=== PATIENT | female | born 1945 | race Caucasian/White ===

== ENCOUNTER 2018-04-10 17:46 | Emergency (ER) | payer OTHER ==
[2018-04-10 19:03] VITALS: BMI 41.5
--- NOTE | 2018-04-10 20:08 | PDOC ---
Attending Attestation - HPI HPI: 04/10/18 20:19 The patient is a 72 year old female with a significant past medical history of COPD(on home O2), hypertension, hypercholesterolemia and anxiety who presents to the emergency department via EMS, from assisted, for elevated potassium since earlier this evening, The patient reports that she lives at home and has a home health aide. The patients potassium was noted to be elevated and was sent to the ED for further evaluation. She denies any other symptoms. She denies any fever, chills,nausea vomiting, diarrhea, constipation or urinary symptoms. She denies any chest pain, shortness of breath, headache or dizziness. The patient denies any other complaints. Documentation prepared by Arsenio Pappas, acting as veterinary medical officer for Cl Navarrete MD. <Arsenio Pappas - Last Filed: 04/10/18 20:19> - Resident Resident Name: Tammy Hernandez - ED Attending Attestation I have performed the following: I have examined & evaluated the patient, The case was reviewed & discussed with the resident, I agree w/resident's findings & plan, Exceptions are as noted - Physicial Exam PE: 04/10/18 21:26 Agree with exam as documented by resident - Medical Decision Making 04/10/18 21:26 Sent for evaluation of lab abnormality, K+ 4.0 today Denies any acute complaints Pt safe for discharge <Cl Navarrete - Last Filed: 04/10/18 21:26>
--- NOTE | 2018-04-10 20:10 | PDOC ---
History of Present Illness - General Chief Complaint: Revisit, Lab Variance Stated Complaint: ELEVATED POTASSIUM LEVEL Time Seen by Provider: 04/10/18 19:51 History Source: Patient Exam Limitations: No Limitations - History of Present Illness Initial Comments: 04/10/18 20:05 72 YOF with h/o COPD on home O2, HTN, HLD, largely bedbound at baseline, agoraphobia, anxiety, who p/w hyperkalemia to 7.0 on outpatient labs drawn on . She denies any new symptoms and has never had this issue with hyperkalemia before. Has chronic fatigue/tiredness which has been ongoing for years, also c/o chronic right eye irritation (states has had infection of that eye for the past 2 years). No new sxs, no f/c/n/v/d/c, chest pain palpitations, abdominal pain, new SOB/wheezing (states this is at her baseline), new muscle atrophy/myalgia, etc. Past History - Past Medical History Allergies/Adverse Reactions: Allergies Allergy/AdvReac Type Severity Reaction Status Date / Time Penicillins Allergy Verified 04/10/18 18:42 Home Medications: Ambulatory Orders Alprazolam [Alprazolam Xr] 0.5 mg PO DAILY 04/10/18 Amlodipine Besylate 10 mg PO DAILY 04/10/18 Ergocalciferol (Vitamin D2) [Vitamin D2] 50,000 unit PO DAILY 04/10/18 Folic Acid 1 mg PO DAILY 04/10/18 Irbesartan [Avapro (Nf) -] 150 mg PO DAILY 04/10/18 Sertraline HCl 50 mg PO DAILY 04/10/18 Asthma: Yes CVA: Yes (stroke x 1) COPD: Yes Psychiatric Problems: Yes (anxiety) - Immunization History Immunization Up to Date: Yes - Suicide/Smoking/Psychosocial Hx Smoking History: Never smoked Have you smoked in the past 12 months: No Information on smoking cessation initiated: No Hx Alcohol Use: No Drug/Substance Use Hx: No Review of Systems - Review of Systems Able to Perform ROS?: Yes Comments:: 04/10/18 20:11 GEN: generalized weakness, fatigue, tiredness (all chronic), no fever, chills, malaise, or weight change HEENT: no ear pain, sore throat, vision change, or eye pain CV: no chest pain, palpitations, lightheadedness, syncope, or edema RESP: cough, wheezing, SOB (all chronic) GI: no abdominal pain, nausea, vomiting, diarrhea, constipation, or white/black/ bloody stool : no dysuria, hematuria, incontinence, retention, bleeding, or discharge MSK: no neck/back pain, muscle weakness/pain, or joint swelling/pain NEURO: no headache, seizure, vertigo, numbness, tingling, or focal weakness PSYCH: anxiety, no substance use, no behavior change SKIN: no jaundice, no rash ROS otherwise negative except as noted in HPI *Physical Exam - Vital Signs Last Vital Signs Temp Pulse Resp BP Pulse Ox 97 F L 90 16 154/81 100 04/10/18 17:46 04/10/18 17:46 04/10/18 17:46 04/10/18 17:46 04/10/18 17:46 - Physical Exam Comments: 04/10/18 20:11 GENERAL: A/Ox4, mildly anxious, son at bedside, answers questions appropriately , obese HEENT: PERRLA, EOMI, moist mucous membranes NECK/BACK: no midline ttp, no spinal stepoff or deformity, no hematoma, full ROM , neck supple CARDIOVASCULAR: regular rate/rhythm, normal S1S2, no MGR, strong peripheral pulses, capillary refill <2 seconds, extremities wwp, no edema LUNGS/RESPIRATORY: no respiratory distress, CTAB GI/ABDOMEN: symmetric [id number], normoactive BS, soft, no ttp, no midline pulsatile masses : no CVA tenderness EXTREMITIES: no muscle atrophy, no acute deformity, no edema SKIN: warm and dry, no pallor, no jaundice, no rash, no bruising, no skin breakdown, no cuts, no lesions NEUROLOGICAL: GCS 15, CN II-XII grossly intact, 5/5 strength proximally and distally, no facial droop Moderate Sedation - Procedure Monitoring Vital Signs: Procedure Monitoring Vital Signs Temperature 97 F L 04/10/18 17:46 Pulse Rate 90 04/10/18 17:46 Respiratory Rate 16 04/10/18 17:46 Blood Pressure 154/81 04/10/18 17:46 O2 Sat by Pulse Oximetry (%) 100 04/10/18 17:46 ED Treatment Course - LABORATORY CBC & Chemistry Diagram: 04/10/18 20:15 04/10/18 20:15 Medical Decision Making - Medical Decision Making 04/10/18 20:08 Pt p/w outpatient labs suggesting hyperkalemia, but has no new sxs. Initial Vital Signs Temp Pulse Resp BP Pulse Ox 97 F L 90 16 154/81 100 04/10/18 17:46 04/10/18 17:46 04/10/18 17:46 04/10/18 17:46 04/10/18 17:46 Exam: As noted in Physical Exam section. DDX IBNLT: most likely hemolyzed sample as the patient has no sxs and no h/o similar lab abnormality, and per history has no obvious cause for hyperkalemia. Also considered are pseudohyperkalemia, statin-induced muscle breakdown/ rhabdomyolysis, renal failure, missed HD, cell (e.g. rhabdo, burn, crush, tumor lysis, hemolysis), medications (ACEI, ARB, NSAIDs, CAMARILLO-2 inhibitors, Bactrim, potassium-sparing diuretics), etc. W/U ordered: CBCD CMP EKG TX ordered: none at this time Laboratory Tests 04/10/18 04/10/18 20:15 20:15 WBC 11.7 H RBC 4.83 Hgb 13.5 Hct 39.6 MCV 81.9 MCH 27.9 MCHC 34.0 RDW 14.2 Plt Count 281 MPV 7.7 Absolute Neuts (auto) 7.7 Neutrophils % 65.6 Lymphocytes % 24.4 Monocytes % 8.2 Eosinophils % 0.9 Basophils % 0.9 Nucleated RBC % 0 Sodium 138 Potassium 4.0 Chloride 99 Carbon Dioxide 33 H Anion Gap 6 L BUN 8 Creatinine 0.9 Creat Clearance w eGFR > 60 Random Glucose 100 Calcium 9.0 Total Bilirubin 0.5 AST 68 H ALT 19 Alkaline Phosphatase 80 Total Protein 6.7 Albumin 3.2 L Reassessment: Patient remains asymptomatic. I am cancelling the EKG as the patient's K+ is found wnl, denies chest pain, palpitations, or other cardiac sxs. Repeat VS: 04/10/18 21:32 Workup is not concerning for emergency-level pathology at this time. EKG without peaked t-waves, no hyperkalemic emergency given lack of QRS widening. The Pt is appropriate for discharge with close outpatient follow up. They are comfortable with this plan and will follow up with their primary care provider in 1-3 days. Specific return precautions are discussed and they will come back to the ER if necessary. *DC/Admit/Observation/Transfer Diagnosis at time of Disposition: Encounter for medical screening examination - Discharge Dispostion Disposition: HOME Condition at time of disposition: Stable Decision to Admit order: No - Referrals Referrals: [facility] [place] [Provider Group] - Patient Instructions Additional Instructions: You were seen in the ER for high potassium. We did an exam, imaging studies, and an electrocardiogram. After our assessment, we do not believe you are having a medical emergency at this time, and we believe you are safe to go home. Please follow up with your primary care team in 1-3 days. We are also giving you referral information for our primary care clinic, in case you need someone new to see. Call their clinic, tell them you were seen in the ER, and tell them you need a follow-up. If you have any new or worsening symptoms, please come back to the ER at any time (24 hours a day). If you are having severe or life threatening symptoms, or symptoms that make it unsafe to drive or have someone drive you, please call 911. - Post Discharge Activity
[2018-04-10 20:34] LABS: BASO % 0.9 % (0-2.0); EOS % 0.9 % (0-4.5); HEMATOCRIT 39.6 % (32.4-45.2); HEMOGLOBIN 13.5 GM/dL (10.7-15.3); LYMPH % 24.4 % (8-40); MCH 27.9 pg (25.7-33.7); MEAN CELL VOLUME 81.9 fl (80-96); MEAN PLT VOLUME 7.7 fl (7.5-11.1); MONO % 8.2 % (3.8-10.2); NEUT % 65.6 % (42.8-82.8); PLATELET COUNT 281 K/MM3 (134-434); RBC 4.83 M/mm3 (3.60-5.2); RDW 14.2 % (11.6-15.6); WHITE BLOOD COUNT 11.7 K/mm3 (4.0-10.0)
[2018-04-10 21:20] LABS: ALBUMIN 3.2 g/dl (3.4-5.0); ALK PHOS 80 U/L (45-117); ANION GAP 6 MMOL/L (8-16); BILIRUBIN,TOTAL 0.5 mg/dL (0.2-1); BLOOD UREA NITROGEN 8 mg/dL (7-18); CHLORIDE 99 mmol/L (98-107); CO2 33 mmol/L (21-32); CREATININE 0.9 mg/dL (0.55-1.3); GLUCOSE,RANDOM 100 mg/dL (74-106); SGOT/AST 68 U/L (15-37); SGPT/ALT 19 U/L (13-61); SODIUM 138 mmol/L (136-145); TOT PROT 6.7 g/dl (6.4-8.2)
[2018-04-10 23:08] VITALS: BP 144/66; PULSE 82; TEMP 97.9
--- NOTE | 2018-04-11 12:15 | EKG ---
Test Reason : Blood Pressure : / mmHG Vent. Rate : 082 BPM Atrial Rate : 082 BPM P-R Int : 150 ms QRS Dur : 082 ms QT Int : 374 ms P-R-T Axes : 059 -05 075 degrees QTc Int : 436 ms NORMAL SINUS RHYTHM WITH SINUS ARRHYTHMIA LOW VOLTAGE QRS BORDERLINE ECG WHEN COMPARED WITH ECG OF 06-JAN-2009 09:11, NONSPECIFIC T WAVE ABNORMALITY HAS REPLACED INVERTED T WAVES IN ANTERIOR LEADS Confirmed by CANDY LOMBARDO, FERNANDO ([id number]) on 04/11/2018 12:14:42 PM Referred By: Confirmed By:FERNANDO GUPTA MD
== END 2018-04-10 23:50 | disposition home or self-care (01) ==
LOC: JER 17:46
DX: E87.5 Hyperkalemia (principal); I10 Essential (primary) hypertension; E78.5 Hyperlipidemia, unspecified; J44.9 Chronic obstructive pulmonary disease, unspecified; F41.8 Other specified anxiety disorders; F40.00 Agoraphobia, unspecified; Z86.73 Personal history of transient ischemic attack (TIA), and cerebral infarction without residual deficits; Z74.01 Bed confinement status
CPT/HCPCS: 36415; 80053; 85025; 93005; 93010; 99282-25

== ENCOUNTER 2020-07-02 20:16 | Inpatient (IN) | payer OTHER ==
[2020-07-02] MEDS ORDERED: SODIUM CHLORIDE 1,000 ML IV STA (20:58)
[2020-07-02 23:18] LABS: BASO % 0.2 % (0-2.0); HEMATOCRIT 42.6 % (32.4-45.2); HEMOGLOBIN 13.6 GM/dL (10.7-15.3); LYMPH % 6.3 % (8-40); MCH 28.2 pg (25.7-33.7); MCHC 31.9 g/dl (32.0-36.0); MEAN CELL VOLUME 88.3 fl (80-96); MEAN PLT VOLUME 8.3 fl (7.5-11.1); MONO % 7.4 % (3.8-10.2); NEUT % 86.1 % (42.8-82.8); PLATELET COUNT 288 K/MM3 (134-434); RBC 4.83 M/mm3 (3.60-5.2); RDW 15.2 % (11.6-15.6)
[2020-07-02 23:53] LABS: POTASSIUM 3.8 mmol/L (3.5-5.1)
[2020-07-02 23:55] LABS: CALCIUM 9.1 mg/dL (8.5-10.1)
[2020-07-02 23:56] LABS: ALBUMIN 3.3 g/dl (3.4-5.0); BLOOD UREA NITROGEN 11.2 mg/dL (7-18)
[2020-07-02 23:59] LABS: CREATININE 1.4 mg/dL (0.55-1.3)
[2020-07-03] LABS: BILIRUBIN,TOTAL 0.6 mg/dL (0.2-1)
[2020-07-03 02:23] LABS: EPI CELLS >36 /uL (0-25.1); HYALINE CASTS 63 /uL (0-3.1); PH,URINE 5.5 (5.0-8.0); URINE APPEARANCE CLOUDY; URINE BACTERIA 31 /uL (0-1359); URINE BILIRUBIN 1+ (NEGATIVE); URINE COLOR DK YELLOW; URINE GLUCOSE (UA) NEGATIVE (NEGATIVE); URINE KETONE TRACE (NEGATIVE); URINE LEUK ESTERASE 1+ (NEGATIVE); URINE NITRITE NEGATIVE (NEGATIVE); URINE PROTEIN 1+ (NEGATIVE); URINE WBC 52 /uL (0-25.8)
[2020-07-03] MEDS ORDERED: NITROFURANTOIN MACROCRYSTAL 50 MG CAPSULE (FP) PO SCH (03:00)
[2020-07-03] MEDS ORDERED: SODIUM CHLORIDE 1,000 ML IV SCH (06:45)
[2020-07-03] MEDS ORDERED: INSULIN SLIDING SCALE (NOVOLOG) 1 VIAL SQ SCH (07:00)
[2020-07-03] MEDS: HEPARIN NA (PORCINE) 5,000 UNITS/ML 1ML VIAL SQ SCH ×3 (10:06→21:19)
[2020-07-03 10:45] LABS: BASO % 0.3 % (0-2.0); EOS % 0.1 % (0-4.5); HEMATOCRIT 37.8 % (32.4-45.2); MCH 27.9 pg (25.7-33.7); MCHC 31.6 g/dl (32.0-36.0); MEAN CELL VOLUME 88.3 fl (80-96); MEAN PLT VOLUME 8.1 fl (7.5-11.1); MONO % 7.4 % (3.8-10.2); NEUT % 79.2 % (42.8-82.8); PLATELET COUNT 227 K/MM3 (134-434); RBC 4.29 M/mm3 (3.60-5.2); RDW 14.7 % (11.6-15.6); WHITE BLOOD COUNT 12.4 K/mm3 (4.0-10.0)
[2020-07-03 11:18] LABS: POTASSIUM 3.9 mmol/L (3.5-5.1)
[2020-07-03 11:21] LABS: ALBUMIN 2.7 g/dl (3.4-5.0); BLOOD UREA NITROGEN 13.4 mg/dL (7-18); CALCIUM 8.6 mg/dL (8.5-10.1)
[2020-07-03 11:24] LABS: CREATININE 1.1 mg/dL (0.55-1.3)
[2020-07-03 11:26] LABS: BILIRUBIN,TOTAL 0.5 mg/dL (0.2-1); TOT PROT 5.8 g/dl (6.4-8.2)
[2020-07-03] MEDS ORDERED: PATIENT'S OWN MEDICATION (NON-FORMULARY) (Alprazolam [Alprazolam Xr] 0.5 MG Tab.Er.24h) PO SCH (13:00)
[2020-07-03] MEDS: SERTRALINE HCL 50 MG TABLET (FP) PO SCH (14:28)
[2020-07-03] MEDS: FOLIC ACID 1 MG TABLET (FP) PO SCH (14:28)
[2020-07-03] MEDS: amLODIPine BESYLATE 5 MG TABLET (FP) PO SCH (14:28)
[2020-07-03] MEDS ORDERED: ALPRAZOLAM 0.25 MG PO SCH (14:45)
[2020-07-03] MEDS: SODIUM CHLORIDE 1,000 ML IV SCH (19:01)
[2020-07-03] MEDS: ALPRAZolam 0.25 MG TABLET PO PRN (19:03)
[2020-07-04] MEDS: HEPARIN NA (PORCINE) 5,000 UNITS/ML 1ML VIAL SQ SCH ×3 (05:30→21:19)
[2020-07-04 09:01] LABS: VENOUS BASE EXCESS 3.7 mmol/L (-2-2); VENOUS O2 SATURATION 88.3 % (70-80); VENOUS PH 7.371 (7.310-7.410)
[2020-07-04 09:07] LABS: BASO % 0.3 % (0-2.0); EOS % 0.9 % (0-4.5); HEMATOCRIT 36.2 % (32.4-45.2); HEMOGLOBIN 11.8 GM/dL (10.7-15.3); LYMPH % 27.1 % (8-40); MCH 28.8 pg (25.7-33.7); MCHC 32.7 g/dl (32.0-36.0); MEAN CELL VOLUME 88.1 fl (80-96); MEAN PLT VOLUME 7.8 fl (7.5-11.1); MONO % 8.5 % (3.8-10.2); NEUT % 63.2 % (42.8-82.8); PLATELET COUNT 208 K/MM3 (134-434); RBC 4.12 M/mm3 (3.60-5.2); RDW 14.9 % (11.6-15.6); WHITE BLOOD COUNT 9.2 K/mm3 (4.0-10.0)
[2020-07-04] MEDS: amLODIPine BESYLATE 5 MG TABLET (FP) PO SCH (09:28)
[2020-07-04] MEDS: SERTRALINE HCL 50 MG TABLET (FP) PO SCH (09:28)
[2020-07-04] MEDS: FOLIC ACID 1 MG TABLET (FP) PO SCH (09:29)
[2020-07-04 09:31] LABS: POTASSIUM 4.2 mmol/L (3.5-5.1)
[2020-07-04 09:36] LABS: ALBUMIN 2.6 g/dl (3.4-5.0); CALCIUM 8.6 mg/dL (8.5-10.1)
[2020-07-04 09:37] LABS: BILIRUBIN,TOTAL 0.7 mg/dL (0.2-1); BLOOD UREA NITROGEN 14.2 mg/dL (7-18); MAGNESIUM 2.2 mg/dL (1.8-2.4)
[2020-07-04 09:40] LABS: CREATININE 0.8 mg/dL (0.55-1.3)
[2020-07-04 09:42] LABS: TOT PROT 5.7 g/dl (6.4-8.2)
[2020-07-04] MEDS: SODIUM CHLORIDE 1,000 ML IV SCH ×2 (13:34→15:13)
[2020-07-04] MEDS ORDERED: ACETAMINOPHEN 325 MG TABLET (FP) PO ONE (21:05)
[2020-07-04] MEDS: ALPRAZolam 0.25 MG TABLET PO PRN (21:18)
[2020-07-05] MEDS: HEPARIN NA (PORCINE) 5,000 UNITS/ML 1ML VIAL SQ SCH ×3 (05:31→22:04)
[2020-07-05] MEDS: SODIUM CHLORIDE 1,000 ML IV SCH ×2 (05:36→15:37)
[2020-07-05 09:09] LABS: BASO % 0.8 % (0-2.0); EOS % 1.3 % (0-4.5); HEMATOCRIT 35.3 % (32.4-45.2); HEMOGLOBIN 11.5 GM/dL (10.7-15.3); LYMPH % 23.8 % (8-40); MCH 28.8 pg (25.7-33.7); MCHC 32.6 g/dl (32.0-36.0); MEAN CELL VOLUME 88.3 fl (80-96); MEAN PLT VOLUME 7.4 fl (7.5-11.1); MONO % 8.3 % (3.8-10.2); NEUT % 65.8 % (42.8-82.8); PLATELET COUNT 201 K/MM3 (134-434); RDW 14.7 % (11.6-15.6)
[2020-07-05 09:44] LABS: POTASSIUM 3.9 mmol/L (3.5-5.1)
[2020-07-05 09:46] LABS: ALBUMIN 2.6 g/dl (3.4-5.0); BLOOD UREA NITROGEN 10.4 mg/dL (7-18); CALCIUM 8.1 mg/dL (8.5-10.1)
[2020-07-05 09:50] LABS: CREATININE 0.7 mg/dL (0.55-1.3)
[2020-07-05 09:51] LABS: BILIRUBIN,TOTAL 0.6 mg/dL (0.2-1); TOT PROT 5.6 g/dl (6.4-8.2)
[2020-07-05] MEDS: SERTRALINE HCL 50 MG TABLET (FP) PO SCH (10:24)
[2020-07-05] MEDS: FOLIC ACID 1 MG TABLET (FP) PO SCH (10:24)
[2020-07-05] MEDS: amLODIPine BESYLATE 5 MG TABLET (FP) PO SCH (10:25)
[2020-07-05] MEDS ORDERED: SODIUM CHLORIDE 1,000 ML IV SCH (16:25)
[2020-07-05] MEDS ORDERED: ACETAMINOPHEN 325 MG TABLET (FP) PO ONE (19:28)
[2020-07-06] MEDS: HEPARIN NA (PORCINE) 5,000 UNITS/ML 1ML VIAL SQ SCH ×3 (05:03→22:31)
[2020-07-06 07:48] LABS: HEMATOCRIT 35.8 % (32.4-45.2); HEMOGLOBIN 11.6 GM/dL (10.7-15.3); MCH 28.5 pg (25.7-33.7); MCHC 32.5 g/dl (32.0-36.0); MEAN CELL VOLUME 87.6 fl (80-96); MEAN PLT VOLUME 7.7 fl (7.5-11.1); PLATELET COUNT 205 K/MM3 (134-434); RBC 4.08 M/mm3 (3.60-5.2); WHITE BLOOD COUNT 7.6 K/mm3 (4.0-10.0)
[2020-07-06 08:17] LABS: POTASSIUM 3.8 mmol/L (3.5-5.1)
[2020-07-06 08:22] LABS: ALBUMIN 2.5 g/dl (3.4-5.0); BLOOD UREA NITROGEN 7.8 mg/dL (7-18); CALCIUM 8.6 mg/dL (8.5-10.1)
[2020-07-06 08:25] LABS: CREATININE 0.6 mg/dL (0.55-1.3)
[2020-07-06 08:27] LABS: BILIRUBIN,TOTAL 0.5 mg/dL (0.2-1); TOT PROT 5.5 g/dl (6.4-8.2)
[2020-07-06] MEDS: amLODIPine BESYLATE 5 MG TABLET (FP) PO SCH (09:28)
[2020-07-06] MEDS: SERTRALINE HCL 50 MG TABLET (FP) PO SCH (09:28)
[2020-07-06] MEDS: FOLIC ACID 1 MG TABLET (FP) PO SCH (09:29)
[2020-07-06] MEDS ORDERED: ACETAMINOPHEN 325 MG TABLET (FP) PO PRN (09:40)
[2020-07-06 14:04] VITALS: BMI 35.8
[2020-07-06] MEDS: VALSARTAN 80 MG TABLET PO SCH (16:38)
[2020-07-06] MEDS: DOCUSATE SODIUM 100 MG CAPSULE (FP) PO PRN (17:52)
[2020-07-06] MEDS ORDERED: SENNOSIDES 8.6MG TABLET (FP) PO SCH (22:00)
[2020-07-07] MEDS ORDERED: METOPROLOL TARTRATE 25 MG TABLET (FP) PO ONE (04:42)
[2020-07-07] MEDS ORDERED: FLUTICASONE PROP 0.05% 16 GM NASAL SPRAY NS SCH (04:46)
[2020-07-07] MEDS ORDERED: SODIUM CHLORIDE 1,000 ML IV SCH (05:00)
[2020-07-07] MEDS: HEPARIN NA (PORCINE) 5,000 UNITS/ML 1ML VIAL SQ SCH (05:46)
[2020-07-07 07:35] VITALS: TEMP 98
[2020-07-07] MEDS ORDERED: CEFPODOXIME PROXETIL 100 MG TABLET PO ONE (09:15)
[2020-07-07] MEDS ORDERED: PT OWN MED DRAWER 7, Y5N ONE (09:52)
[2020-07-07] MEDS: VALSARTAN 80 MG TABLET PO SCH (10:05)
[2020-07-07] MEDS: SERTRALINE HCL 50 MG TABLET (FP) PO SCH (10:06)
[2020-07-07] MEDS: DOCUSATE SODIUM 100 MG CAPSULE (FP) PO PRN (10:06)
[2020-07-07] MEDS: FOLIC ACID 1 MG TABLET (FP) PO SCH (10:06)
[2020-07-07] MEDS: amLODIPine BESYLATE 5 MG TABLET (FP) PO SCH (10:06)
[2020-07-07 11:43] VITALS: BP 140/59; PULSE 64
[2020-07-07 12:08] LABS: EPI CELLS >36 /uL (0-25.1); HYALINE CASTS 1 /uL (0-3.1); URINE APPEARANCE CLEAR; URINE BACTERIA 443 /uL (0-1359); URINE BILIRUBIN 1+ (NEGATIVE); URINE COLOR DK YELLOW; URINE GLUCOSE (UA) NEGATIVE (NEGATIVE); URINE KETONE TRACE (NEGATIVE); URINE LEUK ESTERASE TRACE (NEGATIVE); URINE NITRITE NEGATIVE (NEGATIVE); URINE PROTEIN TRACE (NEGATIVE); URINE RBC 91 /uL (0-23.9); URINE WBC 29 /uL (0-25.8)
== END 2020-07-07 13:48 | DRG 558 ==
LOC: JER 20:16 → JERBED 07-03 03:05 → J5S 07-03 11:14
PROVIDERS: ADMIT Internal Medicine
DX: M62.82 Rhabdomyolysis (principal); N17.9 Acute kidney failure, unspecified; N39.0 Urinary tract infection, site not specified; I10 Essential (primary) hypertension; J44.9 Chronic obstructive pulmonary disease, unspecified; E78.5 Hyperlipidemia, unspecified; E86.0 Dehydration; R62.7 Adult failure to thrive; F41.9 Anxiety disorder, unspecified; Z99.81 Dependence on supplemental oxygen; Z88.0 Allergy status to penicillin; Z74.01 Bed confinement status; Z86.73 Personal history of transient ischemic attack (TIA), and cerebral infarction without residual deficits; F40.00 Agoraphobia, unspecified; E66.9 Obesity, unspecified; Z68.35 Body mass index [BMI] 35.0-35.9, adult; F32.9 Major depressive disorder, single episode, unspecified; W19.XXXA Unspecified fall, initial encounter; Y93.89 Activity, other specified; Y92.098 Other place in other non-institutional residence as the place of occurrence of the external cause; Y99.8 Other external cause status
CPT/HCPCS: 36415; 71045-TC-FY; 72170-TC-FY; 73562-TC-LT-FY; 73562-TC-RT-FY; 73610-TC-LT-FY; 76775-TC; 80053; 81003; 82550; 82553; 82803; 83036; 83735; 84484; 85025; 85027; 87086; 87186; 93005; 93010; 93880-TC; 97116-GP; 97162-GP; 99285-25; C9803; J1644; U0003

== ENCOUNTER 2020-07-12 13:18 | Inpatient (IN) | payer OTHER ==
[2020-07-12 14:20] VITALS: BMI 38.4
[2020-07-12 16:13] LABS: CHLORIDE 95 mmol/L (98-107); SODIUM 140 mmol/L (136-145)
[2020-07-12 16:15] LABS: ANION GAP 7 MMOL/L (8-16); BLOOD UREA NITROGEN 22.4 mg/dL (7-18); CALCIUM 9.2 mg/dL (8.5-10.1); CO2 38 mmol/L (21-32); INR 1.14 (0.83-1.09); VENOUS BASE EXCESS 6.2 mmol/L (-2-2); VENOUS PH 7.256 (7.310-7.410)
[2020-07-12 16:16] LABS: ALBUMIN 2.7 g/dl (3.4-5.0); GLUCOSE,RANDOM 88 mg/dL (74-106)
[2020-07-12 16:18] LABS: SGOT/AST 23 U/L (15-37); SGPT/ALT 22 U/L (13-61); VENOUS PCO2 83.1 mmHg (38-52)
[2020-07-12 16:19] LABS: CREATININE 0.8 mg/dL (0.55-1.3); LDH 232 U/L (84-246)
[2020-07-12 16:20] LABS: BILIRUBIN,TOTAL 0.7 mg/dL (0.2-1); TOT PROT 6.5 g/dl (6.4-8.2)
[2020-07-12 16:21] LABS: ALK PHOS 74 U/L (45-117)
[2020-07-12 16:24] LABS: N-TERMINAL BNP 2159.7 pg/ml (5-450)
[2020-07-12 16:46] LABS: BASO % 0.2 % (0-2.0); EOS % 0.2 % (0-4.5); HEMOGLOBIN 12.2 GM/dL (10.7-15.3); LYMPH % 13.2 % (8-40); MCH 28.2 pg (25.7-33.7); MCHC 32.1 g/dl (32.0-36.0); MEAN PLT VOLUME 7.7 fl (7.5-11.1); MONO % 6.2 % (3.8-10.2); NEUT % 80.2 % (42.8-82.8); PLATELET COUNT 285 K/MM3 (134-434); RBC 4.32 M/mm3 (3.60-5.2)
[2020-07-12 17:37] LABS: EPI CELLS 16 /uL (0-25.1); HYALINE CASTS 7 /uL (0-3.1); PH,URINE 5.5 (5.0-8.0); URINE APPEARANCE CLEAR; URINE BACTERIA 13 /uL (0-1359); URINE BILIRUBIN 2+ (NEGATIVE); URINE COLOR DK YELLOW; URINE GLUCOSE (UA) NEGATIVE (NEGATIVE); URINE KETONE 1+ (NEGATIVE); URINE LEUK ESTERASE NEGATIVE (NEGATIVE); URINE NITRITE NEGATIVE (NEGATIVE); URINE PROTEIN 1+ (NEGATIVE); URINE RBC 14 /uL (0-23.9); URINE WBC 8 /uL (0-25.8)
[2020-07-12] MEDS ORDERED: VANCOMYCIN 1 GM in D5W (PRE-DOCKED) 1,000 MG/250 ML IVPB ONE (17:49)
[2020-07-12] MEDS ORDERED: AZTREONAM 2 GM in DEXTROSE 5%-WATER 100 ML IVPB ONE (17:49)
[2020-07-12] MEDS ORDERED: VANCOMYCIN 1 GRAM (PRE-DOCKED) 1,000 MG/250 ML BAG IVPB ONE (18:09)
[2020-07-12 18:13] LABS: ARTERIAL BLOOD GAS BASE EXCESS 6.1 mmol/L (-2-2); ARTERIAL BLOOD GAS PO2 65.4 mmHg (80-100); ARTERIAL BLOOD GAS pH 7.311 (7.350-7.450)
[2020-07-12] MEDS ORDERED: methylPREDNISolone NA SUCC 125 MG/2 ML VIAL IVPUSH ONE (18:17)
[2020-07-12] MEDS ORDERED: ALBUTEROL SO4 HFA INHALER IH SCH (18:30)
[2020-07-12] MEDS ORDERED: ACETAMINOPHEN 325 MG TABLET (FP) PO PRN (18:46)
[2020-07-12 19:42] LABS: ARTERIAL BLD GAS O2 SATURATION 97.4 mmHg (95-98); ARTERIAL BLOOD GAS BASE EXCESS 5.9 mmol/L (-2-2); ARTERIAL BLOOD GAS PO2 106.9 mmHg (80-100); ARTERIAL BLOOD GAS pH 7.324 (7.350-7.450)
[2020-07-12 19:43] LABS: ALLENS TEST POSITIVE
[2020-07-12] MEDS ORDERED: AZTREONAM 1 GM VIAL (RESTRICTED TO ID) ONE (19:49)
[2020-07-12] MEDS ORDERED: ALBUTEROL SO4 0.083% IH SOL 2.5 MG/3 ML VIAL.NEB. NEB PRN (21:03)
[2020-07-12] MEDS: PANTOPRAZOLE 40 MG TABLET PO SCH (21:05)
[2020-07-12] MEDS ORDERED: ENOXAPARIN NA (PORCINE) 40 MG/0.4 ML DISP.SYRIN SQ ONE (21:07)
[2020-07-12] MEDS ORDERED: methylPREDNISolone NA SUCC 125 MG/2 ML VIAL ONE (21:07)
[2020-07-12] MEDS: ENOXAPARIN NA (PORCINE) 40 MG/0.4 ML DISP.SYRIN SQ SCH (21:25)
[2020-07-13] MEDS ORDERED: ALBUTEROL SO4 0.083% IH SOL 2.5 MG/3 ML VIAL.NEB. NEB PRN (03:03)
[2020-07-13] MEDS: ALBUTEROL SO4 2.5/IPRATROPIUM 0.5 INH SOL 3 ML VIAL.NEB. NEB SCH ×4 (07:35→22:37)
[2020-07-13 09:38] LABS: BASO % 0.2 % (0-2.0); MEAN CELL VOLUME 87.7 fl (80-96); POTASSIUM 4.3 mmol/L (3.5-5.1)
[2020-07-13] MEDS ORDERED: ACETAMINOPHEN 325 MG TABLET (FP) PO PRN (09:41)
[2020-07-13 09:42] LABS: HEMATOCRIT 34.6 % (32.4-45.2); HEMOGLOBIN 11.4 GM/dL (10.7-15.3); LYMPH % 7.3 % (8-40); MCH 28.9 pg (25.7-33.7); MCHC 32.9 g/dl (32.0-36.0); MEAN PLT VOLUME 7.6 fl (7.5-11.1); MONO % 0.8 % (3.8-10.2); NEUT % 91.7 % (42.8-82.8); PLATELET COUNT 253 K/MM3 (134-434); RBC 3.95 M/mm3 (3.60-5.2); RDW 14.8 % (11.6-15.6); WHITE BLOOD COUNT 7.4 K/mm3 (4.0-10.0)
[2020-07-13] MEDS ORDERED: DOXYCYCLINE INJECTION 100 MG in DEXTROSE 5%-WATER - 100 ML IVPB ONE (10:00)
[2020-07-13] MEDS ORDERED: AZTREONAM 2 GM in DEXTROSE 5%-WATER 100 ML IVPB SCH (10:00)
[2020-07-13] MEDS ORDERED: DOXYCYCLINE INJECTION 100 MG in DEXTROSE 5%-WATER - 100 ML IVPB SCH (10:00)
[2020-07-13] MEDS ORDERED: AZTREONAM 1 GM VIAL (RESTRICTED TO ID) IVPB SCH (10:00)
[2020-07-13 10:02] LABS: ALBUMIN 2.4 g/dl (3.4-5.0); BLOOD UREA NITROGEN 27.3 mg/dL (7-18); CALCIUM 8.5 mg/dL (8.5-10.1); MAGNESIUM 2.3 mg/dL (1.8-2.4)
[2020-07-13 10:05] LABS: CREATININE 0.8 mg/dL (0.55-1.3); PHOSPHOROUS 4.6 mg/dL (2.5-4.9)
[2020-07-13 10:06] LABS: BILIRUBIN,TOTAL 0.5 mg/dL (0.2-1)
[2020-07-13 10:07] LABS: TOT PROT 5.7 g/dl (6.4-8.2)
[2020-07-13] MEDS ORDERED: PT OWN MED DRAWER 7, Y5N ONE ×2 (10:25→11:12)
[2020-07-13] MEDS: ENOXAPARIN NA (PORCINE) 40 MG/0.4 ML DISP.SYRIN SQ SCH (10:29)
[2020-07-13] MEDS: PANTOPRAZOLE 40 MG TABLET PO SCH ×2 (10:31→12:16)
[2020-07-13] MEDS: methylPREDNISolone NA SUCC 40 MG/1 ML VIAL IVPUSH SCH (10:37)
[2020-07-13 11:44] LABS: PLATELET ESTIMATE NORMAL
[2020-07-13] MEDS ORDERED: DOXYCYCLINE INJECTION 100 MG in DEXTROSE 5%-WATER 100 ML IVPB ONE (11:45)
[2020-07-13] MEDS: amLODIPine BESYLATE 10 MG TABLET (FP) PO SCH (12:15)
[2020-07-13] MEDS: METOPROLOL TARTRATE 25 MG TABLET (FP) PO SCH ×2 (12:15→22:01)
[2020-07-13] MEDS: FOLIC ACID 1 MG TABLET (FP) PO SCH (12:15)
[2020-07-13] MEDS: SERTRALINE HCL 50 MG TABLET (FP) PO SCH (12:17)
[2020-07-13] MEDS ORDERED: DOXYCYCLINE HYCLATE 100 MG VIAL ONE (12:27)
[2020-07-13] MEDS ORDERED: DEXTROSE 5%-WATER 100 ML IVPB ONE (12:27)
[2020-07-14] MEDS: ALBUTEROL SO4 2.5/IPRATROPIUM 0.5 INH SOL 3 ML VIAL.NEB. NEB SCH ×5 (08:03→20:24)
[2020-07-14] MEDS ORDERED: PT OWN MED DRAWER 7, Y5N ONE (09:32)
[2020-07-14] MEDS: FOLIC ACID 1 MG TABLET (FP) PO SCH (09:35)
[2020-07-14] MEDS: METOPROLOL TARTRATE 25 MG TABLET (FP) PO SCH ×2 (09:35→22:41)
[2020-07-14] MEDS: methylPREDNISolone NA SUCC 40 MG/1 ML VIAL IVPUSH SCH (09:35)
[2020-07-14] MEDS: PANTOPRAZOLE 40 MG TABLET PO SCH (09:35)
[2020-07-14] MEDS: amLODIPine BESYLATE 10 MG TABLET (FP) PO SCH (09:35)
[2020-07-14] MEDS: ENOXAPARIN NA (PORCINE) 40 MG/0.4 ML DISP.SYRIN SQ SCH (09:36)
[2020-07-14] MEDS: SERTRALINE HCL 50 MG TABLET (FP) PO SCH (09:36)
[2020-07-15] MEDS: ALBUTEROL SO4 2.5/IPRATROPIUM 0.5 INH SOL 3 ML VIAL.NEB. NEB SCH ×4 (07:59→20:00)
[2020-07-15] MEDS: PANTOPRAZOLE 40 MG TABLET PO SCH (09:34)
[2020-07-15] MEDS: predniSONE 20 MG TABLET (UD) PO SCH (09:34)
[2020-07-15] MEDS: FOLIC ACID 1 MG TABLET (FP) PO SCH (09:34)
[2020-07-15] MEDS: ENOXAPARIN NA (PORCINE) 40 MG/0.4 ML DISP.SYRIN SQ SCH (09:34)
[2020-07-15] MEDS: SERTRALINE HCL 50 MG TABLET (FP) PO SCH (09:34)
[2020-07-15] MEDS: amLODIPine BESYLATE 10 MG TABLET (FP) PO SCH (09:34)
[2020-07-15] MEDS: METOPROLOL TARTRATE 25 MG TABLET (FP) PO SCH ×2 (09:34→21:47)
[2020-07-15] MEDS: levoFLOXacin 750 MG TABLET PO SCH (15:21)
[2020-07-15] MEDS: guaiFENesin 200 MG/10 ML 10 ML UNIT-DOSE CUPS PO PRN (22:26)
[2020-07-16] MEDS: levoFLOXacin 750 MG TABLET PO SCH (06:49)
[2020-07-16] MEDS: guaiFENesin 200 MG/10 ML 10 ML UNIT-DOSE CUPS PO PRN (06:49)
[2020-07-16] MEDS: ALBUTEROL SO4 2.5/IPRATROPIUM 0.5 INH SOL 3 ML VIAL.NEB. NEB SCH ×4 (07:35→21:26)
[2020-07-16] MEDS: SERTRALINE HCL 50 MG TABLET (FP) PO SCH (09:28)
[2020-07-16] MEDS: predniSONE 20 MG TABLET (UD) PO SCH (09:28)
[2020-07-16] MEDS: FOLIC ACID 1 MG TABLET (FP) PO SCH (09:28)
[2020-07-16] MEDS: amLODIPine BESYLATE 10 MG TABLET (FP) PO SCH (09:28)
[2020-07-16] MEDS: METOPROLOL TARTRATE 25 MG TABLET (FP) PO SCH ×2 (09:28→21:33)
[2020-07-16] MEDS: PANTOPRAZOLE 40 MG TABLET PO SCH (09:28)
[2020-07-16] MEDS: ENOXAPARIN NA (PORCINE) 40 MG/0.4 ML DISP.SYRIN SQ SCH (09:29)
[2020-07-16] MEDS ORDERED: PT OWN MED DRAWER 7, Y5N ONE (10:54)
[2020-07-17] MEDS: levoFLOXacin 750 MG TABLET PO SCH (06:11)
[2020-07-17] MEDS ORDERED: ACETAMINOPHEN 325 MG TABLET (FP) PO PRN (07:21)
[2020-07-17] MEDS: ALBUTEROL SO4 2.5/IPRATROPIUM 0.5 INH SOL 3 ML VIAL.NEB. NEB SCH ×4 (08:14→21:27)
[2020-07-17] MEDS: SERTRALINE HCL 50 MG TABLET (FP) PO SCH (09:39)
[2020-07-17] MEDS: amLODIPine BESYLATE 10 MG TABLET (FP) PO SCH (09:39)
[2020-07-17] MEDS: PANTOPRAZOLE 40 MG TABLET PO SCH (09:39)
[2020-07-17] MEDS: METOPROLOL TARTRATE 25 MG TABLET (FP) PO SCH ×2 (09:39→22:27)
[2020-07-17] MEDS: predniSONE 20 MG TABLET (UD) PO SCH (09:39)
[2020-07-17] MEDS: ENOXAPARIN NA (PORCINE) 40 MG/0.4 ML DISP.SYRIN SQ SCH (09:39)
[2020-07-17] MEDS: FOLIC ACID 1 MG TABLET (FP) PO SCH (09:40)
[2020-07-18] MEDS ORDERED: PT OWN MED DRAWER 7, Y5N ONE (05:32)
[2020-07-18] MEDS: levoFLOXacin 750 MG TABLET PO SCH (05:39)
[2020-07-18] MEDS: ALBUTEROL SO4 2.5/IPRATROPIUM 0.5 INH SOL 3 ML VIAL.NEB. NEB SCH ×4 (08:53→20:23)
[2020-07-18] MEDS: predniSONE 20 MG TABLET (UD) PO SCH (09:15)
[2020-07-18] MEDS: SERTRALINE HCL 50 MG TABLET (FP) PO SCH (09:15)
[2020-07-18] MEDS: PANTOPRAZOLE 40 MG TABLET PO SCH (09:15)
[2020-07-18] MEDS: ENOXAPARIN NA (PORCINE) 40 MG/0.4 ML DISP.SYRIN SQ SCH (09:15)
[2020-07-18] MEDS: amLODIPine BESYLATE 10 MG TABLET (FP) PO SCH (09:15)
[2020-07-18] MEDS: FOLIC ACID 1 MG TABLET (FP) PO SCH (09:15)
[2020-07-18] MEDS: METOPROLOL TARTRATE 25 MG TABLET (FP) PO SCH ×2 (09:15→21:51)
[2020-07-19] MEDS: levoFLOXacin 750 MG TABLET PO SCH (05:47)
[2020-07-19] MEDS: ALBUTEROL SO4 2.5/IPRATROPIUM 0.5 INH SOL 3 ML VIAL.NEB. NEB SCH ×2 (07:46→11:46)
[2020-07-19] MEDS: amLODIPine BESYLATE 10 MG TABLET (FP) PO SCH (10:44)
[2020-07-19] MEDS: predniSONE 20 MG TABLET (UD) PO SCH (10:44)
[2020-07-19] MEDS: SERTRALINE HCL 50 MG TABLET (FP) PO SCH (10:44)
[2020-07-19] MEDS: METOPROLOL TARTRATE 25 MG TABLET (FP) PO SCH (10:44)
[2020-07-19] MEDS: PANTOPRAZOLE 40 MG TABLET PO SCH (10:44)
[2020-07-19] MEDS: ENOXAPARIN NA (PORCINE) 40 MG/0.4 ML DISP.SYRIN SQ SCH (10:44)
[2020-07-19] MEDS: FOLIC ACID 1 MG TABLET (FP) PO SCH (10:45)
[2020-07-19 13:28] VITALS: BP 120/60; PULSE 71; TEMP 98.5
== END 2020-07-19 13:41 | DRG 193 ==
LOC: JER 13:18 → JERBED 18:58 → J4W 07-13 00:07 → J8W 07-16 18:26
PROVIDERS: ADMIT Internal Medicine; ATTEND Family Medicine
DX: J18.9 Pneumonia, unspecified organism (principal); J96.21 Acute and chronic respiratory failure with hypoxia; J96.22 Acute and chronic respiratory failure with hypercapnia; J44.0 Chronic obstructive pulmonary disease with (acute) lower respiratory infection; E87.2 Acidosis; E87.3 Alkalosis; J44.1 Chronic obstructive pulmonary disease with (acute) exacerbation; I10 Essential (primary) hypertension; J44.9 Chronic obstructive pulmonary disease, unspecified; E78.5 Hyperlipidemia, unspecified; F40.00 Agoraphobia, unspecified; F41.9 Anxiety disorder, unspecified; R41.82 Altered mental status, unspecified; R91.8 Other nonspecific abnormal finding of lung field; Z99.81 Dependence on supplemental oxygen; Z86.73 Personal history of transient ischemic attack (TIA), and cerebral infarction without residual deficits
CPT/HCPCS: 36415; 36600; 70450-TC; 71045-TC-FY; 71250-TC; 80053; 81003; 82728; 82803; 82962; 83605; 83615; 83735; 83880; 84100; 84484; 85025; 85610; 85730; 86140; 87086; 87804; 93005; 93010; 94640; 94660; 97116-GP; 97162-GP; 99291; C9803; U0003; U0005